=== PATIENT | male | born 1950 | race Caucasian/White ===

== ENCOUNTER 2019-03-23 05:46 | Day surgery (SDC) | payer MEDICARE, BC ==
[2019-03-23] MEDS ORDERED: MIDAZOLAM HCL 2MG/2ML VIAL IV ONE (05:47)
[2019-03-23] MEDS ORDERED: DEXAMETHASONE 4 MG/ML 1ML VIAL IVP ONE (05:47)
[2019-03-23] MEDS ORDERED: FAMOTIDINE 20MG TABLET PO ONE ×2 (05:47→06:00)
[2019-03-23] MEDS ORDERED: ROPIVACAINE HCL (NAROPIN) /PF 5MG/ML 20ML VIAL IV ONE (05:47)
[2019-03-23] MEDS ORDERED: MECLIZINE 25 MG TABLET PO ONE ×2 (05:47→06:00)
[2019-03-23] MEDS ORDERED: PROPOFOL 10 MG/ML VIAL IV ONE (05:47)
[2019-03-23] MEDS ORDERED: LIDOCAINE 2% MDV (20MG/ML) 20ML VIAL IV ONE (05:47)
[2019-03-23] MEDS ORDERED: METOCLOPRAMIDE 10 MG TABLET PO ONE ×2 (05:47→06:00)
[2019-03-23] MEDS ORDERED: CEFAZOLIN 2 Gram 2 GM/50 ML BAG IVPB ONE (06:00)
[2019-03-23] MEDS ORDERED: VANCOMYCIN 1GM/200ML PREMIX 1 GM/200 ML PIGGYBACK IVPB ONE ×2 (06:00→18:45)
[2019-03-23] MEDS ORDERED: RINGERS SOLUTION,LACTATED 1,000 ML IV ONE (06:40)
[2019-03-23] MEDS ORDERED: CLONAZEPAM 1MG TABLET PO PRN (09:58)
[2019-03-23] MEDS ORDERED: MAGNESIUM HYDROXIDE 30 ML UDC PO PRN (10:00)
[2019-03-23] MEDS ORDERED: OXYCODONE HCL/APAP 5MG/325MG TABLET PO PRN (10:00)
[2019-03-23] MEDS ORDERED: NALOXONE 0.4 MG/1 ML VIAL IVP PRN (10:00)
[2019-03-23] MEDS ORDERED: ACETAMINOPHEN 325 MG TAB PO PRN (10:00)
[2019-03-23] MEDS ORDERED: TRAMADOL HCL 50 MG TABLET PO PRN ×2 (10:00)
[2019-03-23] MEDS ORDERED: DIPHENHYDRAMINE HCL 25 MG CAPSULE PO PRN (10:00)
[2019-03-23] MEDS ORDERED: ZOLPIDEM TARTRATE 5 MG TABLET PO PRN (10:00)
[2019-03-23] MEDS ORDERED: METOCLOPRAMIDE HCL 10 MG/2 ML VIAL IVP PRN (10:00)
[2019-03-23] MEDS ORDERED: ONDANSETRON HCL IV 4 MG/2 ML VIAL IVP PRN (10:00)
[2019-03-23] MEDS ORDERED: HYDROMORPHONE HCL 2 MG/ML VIAL IV PRN (10:00)
[2019-03-23] MEDS ORDERED: SENNOSIDES/DOCUSATE SODIUM UD CAPSULE PO PRN (10:00)
[2019-03-23] MEDS ORDERED: AL HYDROX/MAG HYDROX 30ML UD PO PRN (10:00)
--- NOTE | 2019-03-23 10:12 | Operative Note ---
DATE OF SURGERY: 03/23/2019 SURGEON: Roman Taylor D.O. REFERRING PHYSICIAN: Vic Carrasquillo D.O. PREOPERATIVE DIAGNOSIS: OSTEOARTHRITIS OF THE RIGHT KNEE. POSTOPERATIVE DIAGNOSIS: OSTEOARTHRITIS OF THE RIGHT KNEE. OPERATION: RIGHT TOTAL KNEE ARTHROPLASTY. DESCRIPTION: This 68-year-old male was taken to the Operating Room and placed in the supine position on the operating room table. After spinal anesthesia was induced by the Department of Anesthesia the right lower extremity was then elevated, it was prepped with Hibiclens and draped in the usual sterile fashion. Subsequently it was exsanguinated and the tourniquet was inflated to 300 mmHg. All scrub personnel wore personal isolation suits. An anterior longitudinal midline incision was made followed by a medial parapatellar arthrotomy incision. An intercondylar drill hole was made for the intramedullary alignment bridger and a 6 degree valgus 9 mm cut was made on the distal femur and the wafer of bone was removed. The sizing jig affixed, and a size 67.5 was seen to be the appropriate size and the 4-in-1 cutting block was pinned in 3 degrees of external rotation and the appropriate cuts were made. We then directed our attention to the proximal tibia and an extramedullary alignment guide was used to cut the proximal tibia referencing a 10 mm cut off the lateral tibial plateau. Once the appropriate alignment of the cutting block had been assured a 3 degree posterior slope cut was made and the wafer of bone was removed. Remnants of the menisci and osteophytes were removed from the posterior aspect of the joint. The patella was then measured and cut to restore anatomic height with the patellar trial component. The wound was copiously irrigated with lactated Ringer's solution to remove all debris from the joint, the trial components inserted and the knee was taken through range of motion with a 67.5 femur, 75 tibia, 37 x 10 mm patella and a 10 mm bearing. This gave us excellent stability throughout the full range of motion. All trial components were then removed and the wound copiously irrigated with lactated Ringer's solution, the proximal tibia had been punched, all bony surfaces were dried, and excess cement removed after the insertion of each component. Initially the tibial baseplate was cemented followed by the insertion of the tibial bearing, the femoral component, and finally the patella. After the cement had hardened we then took the knee through range of motion and found it to be stable, a drain was placed through a separate stab incision. The arthrotomy incision was closed with #2 Vicryl, the subcutaneous tissue was closed with 0 Vicryl, the skin was stapled, sterile dressings with Polar Care were applied and the patient was taken to the Recovery Room in satisfactory condition. GROSS PATHOLOGY: This patient demonstrated full thickness articular cartilage loss noted in the medial compartment and at the patellofemoral joint with the lateral compartment showing Grade 2 changes. FINAL COMPONENTS INSERTED: [employer], a size 67.5 cruciate retaining femoral component, a 75 tibial baseplate, a 37 x 10 mm patella, and a 10 mm anterior stabilized A1 bearing was used. JOB NUMBER: [id number] MTDD
[2019-03-23] MEDS: HYDROCODONE/APAP 5/325MG TABLET PO PRN ×2 (12:06→19:28)
[2019-03-23] MEDS: RINGERS SOLUTION,LACTATED 1,000 ML IV SCH (15:08)
--- NOTE | 2019-03-23 17:51 | Rehab Evaluation ---
Patient Information - Patient Information Diagnosis: OA R knee, s/o TKA Ordered Treatment: PT Evaluate and Treat Status: Initial Evaluation Surgery: Yes (R TKA) Date of Surgery: 03/23/19 History: Detail (Pt describes progressive degeneration of R knee, worsening over past several months.) Past Medical/Surgical Hx: PAST MEDICAL/SURGICAL HISTORY Past Surgical History BILAT KNEE SCOPES PMH - Respiratory Hx Respiratory Disorders Yes Hx Pneumonia Yes: 2016 Hx Sleep Apnea Yes: cpap at home Hx of CPAP No Comment: PNEUMOTHORAX RIGHT [id number] PMH - Cardiovascular Hx Cardiovascular Disorders Yes Hx Deep Vein Thrombosis Yes: 2017 AFTER KNEE SCOPE Hx Vascular Disease Yes: VARICOSE VEINS LE'S Hx Rheumatic Fever Yes: AT AGE 9 Hx Heart Murmur Yes Exercise Tolerance Good PMH - Neuro Hx Neurological Disorders Yes 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 Comment: MOTOR TICS SINCE AGE 9 WHEN HE HAD RHEUMATIC FEVER TAKES KLONOPIN PMH - GI Hx Gastrointestinal Disorders No PMH - Hx Genitourinary Disorders Yes Hx Bladder Problem Yes: FREQUENCY Hx Prostate Problems Yes: BPH PMH - Endocrine Hx Endocrine Disorders No PMH - Musculoskeletal Hx Musculoskeletal Disorders Yes Hx Arthritis Yes: RIGHT KNEE PMH - Psych Hx Psychiatric Problems Yes Hx Depression Yes: SITUATIONAL GREIVING OF 1 YEAR AGO PMH - Hematology/Oncology Hx Hematology/Oncology No Disorders Premorbid Status: Detail (Pt was ambulating without assistive device but reports that he often tripped with R LE and often fell.) Social History: Detail (Pt lives alone in a single story home with two steps to enter, with no hand rails. He has a walk in shower with hand held shower head, standard height toilet w/no grab bars. He will have assistance from son to get home and for other needs, as well as other family members/friends.) Precautions: [place], Fall - Time With Patient Total Time Spent With Patient (Min): 40 Treatment Procedures: Detail (PT Evaluation, mobility and gait training.) Subjective Information - Subjective Information Per Patient (Pt reports little pain in his R knee. He reports having had trouble w/urinary retention immediately after surgery and required catheterization. He states that nausea and discomfort he was feeling prior to catheterization has been relieved.) Objective Data - Pain Pain Present: Yes Pain Intensity: 3 (R knee ) Pain Scale Used: Numeric (1 - 10) - Mental Status Patient Orientation: Oriented x3 - Visual Perception Appears within normal limits for therapeutic activities - ROM Not within normal limits (AROM is WNL in R hip and ankle, limited in R knee due to surgical procedure and bulky dressing. AROM in L hip, knee, and ankle is WNL.) - Strength/Tone Not within normal limits (3/5 strength in R hip flexion, extension, abduction, adduction; 3-/5 R knee flexion and extension, 3+/5 R ankle dorsiflexion. 4+/5 in all major muscle groups of L LE.) - Coordination Appears within normal limits for therapeutic activities - Bed Mobility Needs Assist (Used trapeze to help scoot to edge of bed and required minimal assist to move R LE across bed and off of bed. Used trapeze to scoot into bed and CGA for R LE to get into bed.) - Transfers Needs Assist (Required verbal cues and CGA for sit/stand transfer.) - Balance Balance Sitting: Good Balance Standing: Good - Sensation Intact - Gait Detail (Ambulated from bedside to hallway just outside room door and back to bedside w/front wheeled walker w/CGA (about 28 feet total). VCs for proper technique.) Therapy Assessment - Therapy Assessment Detail (Pt exhibits mobility impairments consistent with his post-surgical condition. He will benefit from inpatient physical therapy to facilitate safe return to home.) Patient Education - Patient Education Teaching Topic: Equipment Use, Exercise/Activity Response: Reinforcement Needed, Verbalize Understanding Teaching Method: Discussion, Demonstration Teaching Recipient: Patient Barriers To Learning: None Problem List - Problem List Physical Therapy Problem List: Detail (1. Requires assist for bed mobility. 2. Requires assist for transfers. 3. Difficulty walking. 4. Impaired ROM in R knee.) Goals - Goals Physical Therapy Goals: 1. Pt will be independent w/bed mobility and transfers. 2. Pt will be safely and independently ambulate household distances and steps w/front wheeled walker. 3. Pt will be independent with basic home exercise program. Prognosis - Prognosis Good Plan - Plan Physical Therapy Plan: Pt will be seen 1-2 times tomorrow to address bed mobility, transfers, gait training including stairs, and review of HEP.
[2019-03-23] MEDS: APIXABAN 5MG TABLET PO SCH (21:19)
[2019-03-24] MEDS: RINGERS SOLUTION,LACTATED 1,000 ML IV SCH (04:56)
[2019-03-24] MEDS: APIXABAN 5MG TABLET PO SCH ×2 (08:28→09:04)
[2019-03-24] MEDS: HYDROCODONE/APAP 5/325MG TABLET PO PRN (08:28)
--- NOTE | 2019-03-24 09:52 | Physical Therapy Tx Note ---
Physical Therapy Tx Note - Treatment Note Tolerated: Fair Total Time Spent With Patient: 25 Physical Therapy Tx Note: Detail (The patient was walking into bathroom with nursing staff when PT arrived. The patient had complaints of level 4 pain, however pt. was having difficulty weight bearing on the R LE. The patient ambulated in front wheeled walker WBAT on the R LE a distance of 50 feet x 1 with supervision for safety and verbal cueing for proper technique ie: placing R heel down and stepping through with L LE. The patient declined stair climbing this am. The patient was instructed in TKA HEP including ankle pumps, gluteal sets, SLR with use of strap. Patient was left in recliner with ice in place on R knee and call light within reach. Nursing staff was notified. PT will return this pm for gait training on stairs and review of quad sets and hamstring sets.) Physical Therapy Problem List: Detail (1. Requires assist for bed mobility. 2. Requires assist for transfers. 3. Difficulty walking. 4. Impaired ROM in R knee.) Physical Therapy Goals: 1. Pt will be independent w/bed mobility and transfers. 2. Pt will be safely and independently ambulate household distances and steps w/front wheeled walker. 3. Pt will be independent with basic home exercise program. Physical Therapy Plan: Pt will be seen 1-2 times tomorrow to address bed mobility, transfers, gait training including stairs, and review of HEP.
--- NOTE | 2019-03-24 12:23 | Rehab Evaluation ---
Patient Information - Patient Information Diagnosis: OA R knee, s/p TKA Ordered Treatment: OT Evaluate and Treat Status: Initial Evaluation Surgery: Yes (R TKA) Date of Surgery: 03/23/19 History: Detail (Pt describes progressive degeneration of R knee, worsening over past several months.) Past Medical/Surgical Hx: PAST MEDICAL/SURGICAL HISTORY Past Surgical History BILAT KNEE SCOPES PMH - Respiratory Hx Respiratory Disorders Yes Hx Pneumonia Yes: 2016 Hx Sleep Apnea Yes: cpap at home Hx of CPAP No Comment: PNEUMOTHORAX RIGHT [id number] PMH - Cardiovascular Hx Cardiovascular Disorders Yes Hx Deep Vein Thrombosis Yes: 2017 AFTER KNEE SCOPE Hx Vascular Disease Yes: VARICOSE VEINS LE'S Hx Rheumatic Fever Yes: AT AGE 9 Hx Heart Murmur Yes Exercise Tolerance Good PMH - Neuro Hx Neurological Disorders Yes 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 Comment: MOTOR TICS SINCE AGE 9 WHEN HE HAD RHEUMATIC FEVER TAKES KLONOPIN PMH - GI Hx Gastrointestinal Disorders No PMH - Hx Genitourinary Disorders Yes Hx Bladder Problem Yes: FREQUENCY Hx Prostate Problems Yes: BPH PMH - Endocrine Hx Endocrine Disorders No PMH - Musculoskeletal Hx Musculoskeletal Disorders Yes Hx Arthritis Yes: RIGHT KNEE PMH - Psych Hx Psychiatric Problems Yes Hx Depression Yes: SITUATIONAL GREIVING OF 1 YEAR AGO PMH - Hematology/Oncology Hx Hematology/Oncology No Disorders Premorbid Status: Detail (Pt was ambulating without assistive device but reports that he often tripped with R LE and often fell. He was Ind with all self cares, home mgmt, meal prep and laundry tasks.) Social History: Detail (Pt lives alone in a single story home with two steps to enter, with no hand rails. He has a walk in shower with hand held shower head, standard height toilet w/no grab bars. He will have assistance from son to get home and for other needs, as well as other family members/friends.) Precautions: [place], Fall, Other (WBAT right LE) - Time With Patient Total Time Spent With Patient (Min): 45 Treatment Procedures: Detail (OT eval low complexity) Subjective Information - Subjective Information Per Patient Objective Data - Pain Pain Present: Yes (04/24) - Mental Status Patient Orientation: Oriented x3 - Visual Perception Appears within normal limits for therapeutic activities - ROM Within normal limits (Terence UE AROM WNL) - Strength/Tone Within normal limits (Terence UE strength WNL) - Coordination Appears within normal limits for therapeutic activities - Transfers Independent (Ind with sit to stand from recliner height) - Balance Balance Sitting: Good Balance Standing: Fair - Sensation Intact - ADL's/IADL's Detail (Pt educated and able to demonstrate learning of modified LE dressing techniques including doffing briefs and slipper socks and donning underwear, sweat pants, socks and slip on shoes. Pt did require assist with heel of slip on shoes due to knee pain. Reviewed kitchen, shower and laundry modifications and safety, pt verbalized understanding.) Therapy Assessment - Therapy Assessment Detail (Pt knowledgeable re: modified LE dressing techniques but may benefit from home OT to ensure Ind and safety with ADLs/IADLs at home. Pt was anxious about his pain level when moving his knee during ADLs. He was educated about the importance of moving knee and he verbalized understanding.) Problem List - Problem List Physical Therapy Problem List: Detail (1. Requires assist for bed mobility. 2. Requires assist for transfers. 3. Difficulty walking. 4. Impaired ROM in R knee.) Occupational Therapy Problem List: Detail (No current IP OT problems identified.) Goals - Goals Physical Therapy Goals: 1. Pt will be independent w/bed mobility and transfers. 2. Pt will be safely and independently ambulate household distances and steps w/front wheeled walker. 3. Pt will be independent with basic home exercise program. Occupational Therapy Goals: No current IP OT goals identified. Prognosis - Prognosis Good Plan - Plan Physical Therapy Plan: Pt will be seen 1-2 times tomorrow to address bed mobility, transfers, gait training including stairs, and review of HEP. Occupational Therapy Plan: Pt discharged from IP OT at this time. Recommend home OT to assess safety and Ind with ADLs/IADLs in the home.
--- NOTE | 2019-03-24 14:05 | Physical Therapy Tx Note ---
Physical Therapy Tx Note - Treatment Note Tolerated: Good Total Time Spent With Patient: 30 Physical Therapy Tx Note: Detail (The patient was in bathroom when PT arrived. The patient ambulated with front wheeled walker a distance of 54 feet x 1 WBAT independently. The patient ambulated on 3 steps x2 with use of one railing and cane with CG of 1 using proper technique. The patient had difficulty weight bearing on R LE and was unable to straighten R knee. The patient was returned to room via chair due to fatigue. The patient ambulated 7 feet to bed and was able to complete sit to supine independently with use of strap. The patient was independent scooting up in bed. The patient completed the rest of HEP including quad sets and hamstring sets. The patient passed inpt. PT goals, it is recommended that the patient stay with his son due to instability of gait at ti mes and CG requirement on stairs. Patient is aware of gaurding needs for safety with ambulation. Car transfer technique was also discussed with patient and he verbalized good understanding of proper technique. The patient is discharged from inpt. PT and is to receive Home PT.) Physical Therapy Problem List: Detail (1. Requires assist for bed mobility. 2. Requires assist for transfers. 3. Difficulty walking. 4. Impaired ROM in R knee.) Physical Therapy Goals: 1. Pt will be independent w/bed mobility and transfers.(Goal Met). 2. Pt will be safely and independently ambulate household distances and steps w/front wheeled walker. (Goal Met). 3. Pt will be independent with basic home exercise program. (Goal Met) Physical Therapy Plan: Pt will be seen 1-2 times tomorrow to address bed mobility, transfers, gait training including stairs, and review of HEP.
--- NOTE | 2019-03-24 14:49 | Discharge Summary ---
DATE OF ADMISSION: 03/23/2019 DATE OF DISCHARGE: 03/24/2019 ADMITTING DIAGNOSIS: OSTEOARTHRITIS OF THE RIGHT KNEE. DISCHARGE DIAGNOSIS: OSTEOARTHRITIS OF THE RIGHT KNEE. OPERATIVE PROCEDURE: ELECTIVE RIGHT TOTAL KNEE ARTHROPLASTY. DESCRIPTION: This 68-year-old male was taken to the Operating Room for elective total knee arthroplasty of the right knee and he tolerated the operative procedure well. He progressed satisfactorily with physical therapy and was ready for discharge. We have extensively gone over the exercise program with him and he currently has about -5 to 90 degrees of range of motion at the time of discharge. He was instructed to wear his NISREEN hose during the day and remove them at night. He was given a prescription for Eliquis 5 mg b.i.d., he will take those for a total of four weeks. He is to take Tramadol 50 mg one to two every six hours as necessary for pain and he was given a prescription for [place] 5/325 one every six hours as necessary for pain and he was given 40. Home PT/OT was ordered. Routine wound care instructions were given and he will follow-up in the clinic in two weeks for re-evaluation. Should he have any problems prior to being seen he was instructed to call my office. JOB NUMBER: [id number] MTDD
== END 2019-03-24 16:14 | disposition home health service (06) ==
LOC: SUR 05:46 → MEDSURG 09:54 → SUR 03-24 16:14
PROVIDERS: ATTEND Orthopaedic Surgery
DX: M17.11 Unilateral primary osteoarthritis, right knee (principal); G47.33 Obstructive sleep apnea (adult) (pediatric); Z86.718 Personal history of other venous thrombosis and embolism; Z86.14 Personal history of Methicillin resistant Staphylococcus aureus infection
CPT/HCPCS: 27447; 01402; 64447; 76942; J3490 ×2; J2795; J3370; J7120